=== PATIENT | male | born 1965 | race Caucasian/White ===

== ENCOUNTER 2016-06-28 11:29 | Emergency (ER) | payer OTHER ==
[2016-06-28 11:39] VITALS: BP 125/75; PULSE 69; RESP 18; TEMP 98.6; O2SAT 97
--- NOTE | 2016-06-28 11:56 | C.PDOC ---
History Of Present Illness 50 y/o M p/w bilateral red eye x few days. Reports itchy, irritated with some sneezing. Denies crustiness, fever, dyspnea. Arrived in [facility] 3 years ago, had similar symptoms in the remote past. Time Seen by Provider: 06/28/16 11:43 Chief Complaint (Nursing): Allergic Reaction Past Medical History Vital Signs: Last Vital Signs Temp 98.6 F 06/28/16 11:35 Pulse 69 06/28/16 11:35 Resp 18 06/28/16 11:35 BP 125/75 06/28/16 11:35 Pulse Ox 97 06/28/16 11:57 Surgical History: Cholecystectomy Family History: States: No Known Family Hx - Social History Hx Alcohol Use: No Hx Substance Use: No - Immunization History Hx Tetanus Toxoid Vaccination: No Hx Influenza Vaccination: No Hx Pneumococcal Vaccination: No Review Of Systems Except As Marked, All Systems Reviewed And Found Negative. Eyes: Negative for: Vision Change ENT: Negative for: Ear Pain Physical Exam - Physical Exam Appears: No Acute Distress Head: Normacephalic Eye(s): bilateral: PERRL, EOMI, Eyelid Inflammation Oral Mucosa: Moist Throat: No Erythema, No Exudate Neck: Normal ROM, Supple Respiratory: Normal Breath Sounds, No Rales, No Rhonchi, No Stridor, No Wheezing ED Course And Treatment O2 Sat by Pulse Oximetry: 97 Disposition - Disposition Disposition Time: 11:53 Condition: STABLE Prescriptions: Cetirizine HCl [Wal-Zyr] 1 cap PO DAILY #30 capsule Ketotifen Fumarate [Zaditor] 1 drop OU Q12H #5 ml Instructions: Allergies (ED) - Clinical Impression Clinical Impression: Allergic conjunctivitis
== END 2016-06-28 12:05 | disposition home or self-care (01) ==
LOC: C.ER 11:29
DX: H10.13 Acute atopic conjunctivitis, bilateral (principal)